=== PATIENT | male | born 1970 | race Caucasian/White ===

== ENCOUNTER → 2023-01-23 | Outpatient (CLI) | payer MEDICARE, OTHER ==
--- NOTE | 2023-01-23 15:28 | CT ---
EXAMINATION TYPE: CT urogram wo/w con DATE OF EXAM: 01/23/2023 COMPARISON: None INDICATION: gross hematuria DLP: 88534.4 mGycm, Automated exposure control for dose reduction was used. CONTRAST: 100 mL of Isovue 370. Study performed TECHNIQUE: Axial images were obtained from above the diaphragm to the pubic rami in the axial plane a t 5 mm thick sections. Reconstructed images are reviewed on the computer in the coronal plane. FINDINGS: Limited CT sections are obtained the lung bases. There is some mild infiltrate or atelectasis along the anterior lung bases right middle lobe and lingula. This is nonspecific. Other etiologies could be considered. CT ABDOMEN: Liver: Normal Spleen: Normal Pancreas: Normal Adrenal glands: The adrenal glands are normal. Gallbladder: Normal Kidneys: No masses are evident. No hydronephrosis is present. No cysts are present. No renal stone s are evident. Following contrast administration no suspicious enhancement is evident delayed images were obtained t hrough the kidneys and renal collecting system. Ureters follow a normal caliber course and contour to the urinary bladder. Urinary bladder as visualized appears unremarkable. No hydroureter or hydroneph rosis is evident. No extrinsic defects or filling defects are evident. Grass 3-D reconstructed images performed on a separate computer by the technologist are presented for review. Renal calyces infundi bula and renal pelves as visualized appear within normal limits. There is faint visualization of the renal calyces and infundibula. Ureters and sequential images appear normal rate Aorta: Normal Inferior vena cava: Normal. CT PELVIS: Loops of bowel within the abdomen and pelvis are normal. This study is without oral contrast limi ting bowel evaluation. Appendix: Identified. No dilated tubular structure or inflammatory change is evident. Urinary bladder: Normal. Genitourinary structures: Prostate appears normal. Osseous structures: No suspicious lytic or sclerotic lesions. IMPRESSIONS: 1. No suspicious hydronephrosis or hydroureter. No persistent filling defects identified.
== END | disposition home or self-care (01) ==
LOC: RADCTMAIN 08:51
PROVIDERS: ATTEND Urology
DX: R31.0 Gross hematuria (principal)
CPT/HCPCS: 74178; 74400; Q9967

== ENCOUNTER → 2023-02-20 | Outpatient (CLI) | payer MEDICARE, OTHER ==
[2023-02-20 20:49] LABS: Appearance,Urine Clear (Clear); Bilirubin,Urine Negative (Negative); Blood,Urine Small (Negative); Color,Urine Yellow (Yellow); Ketones,Urine Negative (Negative); Nitrite,Urine Negative (Negative); PH, Urine 7.5 (5.0-8.0); Specific Gravity,Urine 1.014 (1.001-1.030)
[2023-02-20 20:56] LABS: Bacteria,Urine None Seen /HPF (None Seen)
[2023-02-20 21:52] LABS: Basophils # (A) 0.03 X 10*3/uL (0.00-0.10); Basophils % (A) 0.3 %; Eosinophils # (A) 0.05 X 10*3/uL (0.04-0.35); Eosinophils % (A) 0.5 %; HCT 49.2 % (39.6-50.0); HGB 15.7 g/dL (13.0-17.0); Immature Grans, Automated 0.5 %; Lymphocytes # (A) 2.27 X 10*3/uL (0.90-5.00); Lymphocytes % (A) 20.7 %; MCH 29.2 pg (27.0-32.0); MCHC 31.9 g/dL (32.0-37.0); MCV 91.4 fL (80.0-97.0); Mean Platelet Volume 9.6 fL (9.5-12.2); Monocytes # (A) 0.94 X 10*3/uL (0.20-1.00); Monocytes % (A) 8.6 %; NRBC Per 100 WBC 0 /100 WBCS (0.0-0.0); Neutrophils % (A) 69.4 %; Platelet Count 274 X 10*3/uL (140-440); RBC 5.38 X 10*6/uL (4.40-5.60); RDW 13.5 % (11.5-14.5); WBC 10.95 X 10*3/uL (4.50-10.00)
[2023-02-21 00:11] LABS: African American GFR (CKD) 114.6 (60.0-200.0); Anion Gap 12.1 mmol/L (10.00-18.00); BUN/Creat Ratio 15.2 Ratio (12.00-20.00); Blood Urea Nitrogen 13.1 mg/dL (9.0-27.0); Calcium 9.4 mg/dL (8.7-10.3); Carbon Dioxide 26.2 mmol/L (20.0-27.5); Non-African American GFR(CKD) 98.9 (60.0-200.0); Potassium 4.8 mmol/L (3.5-5.5)
== END | disposition home or self-care (01) ==
LOC: LABPAT 13:06
PROVIDERS: ATTEND Urology
DX: Z01.812 Encounter for preprocedural laboratory examination (principal); R31.0 Gross hematuria
CPT/HCPCS: 36415; 80048; 81001; 85025; 87086

== ENCOUNTER 2023-02-27 12:52 | Inpatient (IN) | payer MEDICARE, OTHER ==
[2023-02-27] MEDS ORDERED: IPRATROPIUM-ALBUTEROL 3 ML NEB INHALATION STA (13:12)
[2023-02-27] MEDS ORDERED: methylPREDNISolone SOD SUCCI 125 MG/2 ML VIAL IV STA (13:12)
--- NOTE | 2023-02-27 13:19 | ED ---
General Adult HPI - General Chief complaint: Shortness of Breath Stated complaint: SOB Time Seen by Provider: 02/27/23 13:00 Source: patient, family (Family at bedside states that patient was not short of breath prior to coming to the hospital for his cystogram), RN notes reviewed, old records reviewed Mode of arrival: wheelchair Limitations: no limitations - History of Present Illness Initial comments: 52-year-old morbidly obese male presents to the emergency room sent from the operating room where he was scheduled for cystogram for increasing shortness of breath. Patient denies any chest pain. No nausea or vomiting. No abdominal pain. Patient admits to smoking a pack a day with a history of hypertension, asthma with home oxygen at 2 liters, and atrial fibrillation. -: week(s) (1) Severity scale (1-10): 0 Associated Symptoms: shortness of breath - Related Data Home Medications Medication Instructions Recorded Confirmed Albuterol Inhaler [Ventolin Hfa 1 - 2 puff INHALATION RT-Q6H PRN 02/22/23 02/27/23 Inhaler] Citalopram Hydrobromide 30 mg PO DAILY 02/22/23 02/27/23 [Citalopram HBr] Clopidogrel [Plavix] 75 mg PO DIRECTED 02/22/23 02/27/23 Loratadine [Claritin] 10 mg PO DAILY 02/22/23 02/27/23 Lurasidone [Latuda] 80 mg PO DAILY 02/22/23 02/27/23 Rivaroxaban [Xarelto] 20 mg PO DIRECTED 02/22/23 02/27/23 Rosuvastatin Calcium 5 mg PO DAILY 02/22/23 02/27/23 atenoloL [Tenormin] 50 mg PO DAILY 02/22/23 02/27/23 dilTIAZem HCL [Cartia Xt] 180 mg PO DAILY 02/22/23 02/27/23 Fluticasone/Umeclidin/Vilanter 1 puff INHALATION RT-DAILY 02/27/23 02/27/23 [Trelegy Ellipta 200-62.5-25] Allergies Allergy/AdvReac Type Severity Reaction Status Date / Time aspirin Allergy Swelling Verified 02/27/23 13:17 [facility] [From [facility]] Allergy Rash/Hives Verified 02/27/23 13:17 Iodinated Contrast Media Allergy Chest Pain Verified 02/27/23 13:17 Review of Systems ROS Statement: Those systems with pertinent positive or pertinent negative responses have been documented in the HPI. ROS Other: All systems not noted in ROS Statement are negative. Past Medical History Past Medical History: Atrial Fibrillation, Asthma, Hypertension History of Any Multi-Drug Resistant Organisms: None Reported Past Surgical History: No Surgical Hx Reported Additional Past Surgical History / Comment(s): eye Past Psychological History: Anxiety Smoking Status: Current every day smoker General Exam Limitations: no limitations General appearance: alert, in no apparent distress Head exam: Present: atraumatic Eye exam: Absent: scleral icterus, conjunctival injection, periorbital swelling ENT exam: Present: mucous membranes dry Neck exam: Absent: meningismus Respiratory exam: Present: wheezes. Absent: accessory muscle use Cardiovascular Exam: Present: regular rate, irregular rhythm (afib) GI/Abdominal exam: Present: soft. Absent: distended, tenderness, guarding, rebound, rigid Extremities exam: Present: normal capillary refill. Absent: calf tenderness Neurological exam: Present: alert, oriented X3 Psychiatric exam: Present: normal affect, normal mood Skin exam: Present: warm, dry, normal color. Absent: cyanosis, diaphoretic, pallor Course Vital Signs 02/27/23 02/27/23 02/27/23 12:53 13:28 13:30 Temperature 97.8 F Pulse Rate 75 77 Respiratory 20 20 Rate Blood Pressure 112/74 O2 Sat by Pulse 94 L Oximetry 02/27/23 02/27/23 02/27/23 13:48 14:10 14:43 Temperature Pulse Rate 84 75 68 Respiratory 20 Rate Blood Pressure 126/75 O2 Sat by Pulse 95 Oximetry 02/27/23 14:55 Temperature Pulse Rate 75 Respiratory Rate Blood Pressure O2 Sat by Pulse Oximetry EKG Findings - EKG Comments: EKG Findings:: EKG interpreted by me shows atrial fibrillation with ventricular rate of 77, QRS 0.99, QTC 0.409, normal axis. Medical Decision Making - Medical Decision Making Was pt. sent in by a medical professional or institution (, PA, BEEF BREAKER, urgent care, hospital, or fci...) When possible be specific @ -Yes urology Dr. Fitch from preop Did you speak to anyone other than the patient for history (EMS, parent, family, police, friend...)? What history was obtained from this source @ -family at bedside state shortness of breath worse since arrival to OR Did you review nursing and triage notes (agree or disagree)? Why? @ -I reviewed and agree with nursing and triage notes Were old charts reviewed (outside hosp., previous admission, EMS record, old EKG, old radiological studies, urgent care reports/EKG's, fci records)? Report findings @ -No old charts were reviewed Differential Diagnosis (chest pain, altered mental status, abdominal pain women, abdominal pain men, vaginal bleeding, weakness, fever, dyspnea, syncope, headache, dizziness, GI bleed, back pain, seizure, CVA, palpatations, mental health, musculoskeletal)? @ -Differential Dyspnea: Coronary syndrome, arrhythmia, tamponade, asthma, COPD, pulmonary embolism, p neumonia, pneumothorax, pulmonary effusion, anaphylaxis, diabetic ketoacidosis, flailed chest, pulmonary contusion, diaphragmatic rupture, anemia, neuromuscular, this is not meant to be an all-inclusive list. EKG interpreted by me (3pts min.). @ -yes EKG interpreted by me shows atrial fibrillation with a ventricular rate of 77, QRS of 0.99, QTC 0.409, normal axis. No old EKG to compare. X-rays interpreted by me (1pt min.). @ -Chest x-ray interpreted by me shows no evidence of focal consolidation. Trachea is midline CT interpreted by me (1pt min.). @ -None done U/S interpreted by me (1pt. min.). @ -None done What testing was considered but not performed or refused? (CT, X-rays, U/S, labs)? Why? @ -None What meds were considered but not given or refused? Why? @ -None Did you discuss the management of the patient with other professionals (professionals i.e. ., PA, BEEF BREAKER, lab, RT, psych nurse, social media sr strategy manager, rounding machine operator, teacher, branch officer, case folder)? Give summary @ -No Was smoking cessation discussed for >3mins.? @ -yes Was critical care preformed (if so, how long)? @ -No Were there social determinants of health that impacted care today? How? (Homelessness, low income, unemployed, alcoholism, drug addiction, transportation, low edu. Level, literacy, decrease access to med. care, prison, rehab)? @ -No Was there de-escalation of care discussed even if they declined (Discuss DNR or withdrawal of care, Hospice)? DNR status @ -No What co-morbidities impacted this encounter? (DM, HTN, Smoking, COPD, CAD, Cancer, CVA, ARF, Chemo, Hep., AIDS, mental health diagnosis, sleep apnea, morbid obesity)? @ Morbid obesity, COPD, atrial fibrillation, hypertension Was patient admitted / discharged? Hospital course, mention meds given and route, prescriptions, significant lab abnormalities, going to OR and other pertinent info. @ -Admitted. Patient sent from the operating room during preop for shortness of breath. He was scheduled to have a cystogram with Dr Fitch. Denies any chest pain. States he's had shortness of breath for the past week. Family at bedside states that his shortness of breath worsened since arriving in the hospital. Patient admits to being a pack-a-day smoker. He is on home oxygen 2l. States has a history of atrial fibrillation , has been off Plavix and Xaeralto for four days for this procedure today. On examination patient has inspiratory and expiratory wheezes. He was given a DuoNeb treatment along with Solu-Medrol with improvement of his symptoms. Chest x-ray interpreted by me shows no evidence of focal consolidation. Trachea is midline. D-dimer 0.24. Radiologist impression chest xr generalized hazy appearance which could represent atelectasis. Patient was offered admission initially and declined. After attempting to get dressed for discharge he became increasingly short of breath with exertion therefore changed his mind and now wants to stay in the hospital. Case discussed with Dr. Holt Will reevaluate patient to determine if consults to Dr. Anderson and Dr. Jewell uurology are necessary. Case discussed with Dr. Johnson Undiagnosed new problem with uncertain prognosis? @ -No Drug Therapy requiring intensive monitoring for toxicity (Heparin, Nitro, Insulin, Cardizem)? @ -No Were any procedures done? @ -No Diagnosis/symptom? @ -COPD exacerbation Acute, or Chronic, or Acute on Chronic? @ -Acute on chronic Uncomplicated (without systemic symptoms) or Complicated (systemic symptoms)? @ -Complicated Side effects of treatment? @ -No Exacerbation, Progression, or Severe Exacerbation? @ -Exacerbation Poses a threat to life or bodily function? How? (Chest pain, USA, NC, pneumonia, PE, COPD, DKA, ARF, appy, cholecystitis, CVA, Diverticulitis, Homicidal, Suicidal, threat to staff... and all critical care pts) @ -no - Lab Data Result diagrams: 02/27/23 13:15 02/27/23 13:15 Lab Results 02/27/23 02/27/23 02/27/23 Range/Units 13:15 13:15 13:15 WBC 9.0 (3.8-10.6) k/uL RBC 5.15 (4.30-5.90) m/uL Hgb 15.0 (13.0-17.5) gm/dL Hct 46.1 (39.0-53.0) % MCV 89.6 (80.0-100.0) fL MCH 29.2 (25.0-35.0) pg MCHC 32.6 (31.0-37.0) g/dL RDW 13.2 (11.5-15.5) % Plt Count 260 (150-450) k/uL MPV 7.4 Neutrophils % 72 % Lymphocytes % 18 % Monocytes % 6 % Eosinophils % 3 % Basophils % 0 % Neutrophils # 6.5 (1.3-7.7) k/uL Lymphocytes # 1.6 (1.0-4.8) k/uL Monocytes # 0.5 (0-1.0) k/uL Eosinophils # 0.2 (0-0.7) k/uL Basophils # 0.0 (0-0.2) k/uL PT 10.4 (9.0-12.0) sec INR 1.0 (<1.2) APTT 30.2 H (22.0-30.0) sec D-Dimer 0.24 (<0.60) mg/L FEU Sodium 136 L (137-145) mmol/L Potassium 4.6 (3.5-5.1) mmol/L Chloride 102 (98-107) mmol/L Carbon Dioxide 28 (22-30) mmol/L Anion Gap 6 mmol/L BUN 14 (9-20) mg/dL Creatinine 0.67 (0.66-1.25) mg/dL Est GFR (CKD-EPI)AfAm >90 (>60 ml/min/1.73 sqM) Est GFR (CKD-EPI)NonAf >90 (>60 ml/min/1.73 sqM) Glucose 117 H (74-99) mg/dL Plasma Lactic Acid Joseluis (0.7-2.0) mmol/L Calcium 8.7 (8.4-10.2) mg/dL Magnesium 2.0 (1.6-2.3) mg/dL Total Bilirubin 1.0 (0.2-1.3) mg/dL AST 19 (17-59) U/L ALT 15 (4-49) U/L Alkaline Phosphatase 74 (38-126) U/L Troponin I (0.000-0.034) ng/mL NT-Pro-B Natriuret Pep pg/mL Total Protein 6.5 (6.3-8.2) g/dL Albumin 3.8 (3.5-5.0) g/dL 02/27/23 02/27/23 02/27/23 Range/Units 13:15 13:15 13:15 WBC (3.8-10.6) k/uL RBC (4.30-5.90) m/uL Hgb (13.0-17.5) gm/dL Hct (39.0-53.0) % MCV (80.0-100.0) fL MCH (25.0-35.0) pg MCHC (31.0-37.0) g/dL RDW (11.5-15.5) % Plt Count (150-450) k/uL MPV Neutrophils % % Lymphocytes % % Monocytes % % Eosinophils % % Basophils % % Neutrophils # (1.3-7.7) k/uL Lymphocytes # (1.0-4.8) k/uL Monocytes # (0-1.0) k/uL Eosinophils # (0-0.7) k/uL Basophils # (0-0.2) k/uL PT (9.0-12.0) sec INR (<1.2) APTT (22.0-30.0) sec D-Dimer (<0.60) mg/L FEU Sodium (137-145) mmol/L Potassium (3.5-5.1) mmol/L Chloride (98-107) mmol/L Carbon Dioxide (22-30) mmol/L Anion Gap mmol/L BUN (9-20) mg/dL Creatinine (0.66-1.25) mg/dL Est GFR (CKD-EPI)AfAm (>60 ml/min/1.73 sqM) Est GFR (CKD-EPI)NonAf (>60 ml/min/1.73 sqM) Glucose (74-99) mg/dL Plasma Lactic Acid Joseluis 0.9 (0.7-2.0) mmol/L Calcium (8.4-10.2) mg/dL Magnesium (1.6-2.3) mg/dL Total Bilirubin (0.2-1.3) mg/dL AST (17-59) U/L ALT (4-49) U/L Alkaline Phosphatase (38-126) U/L Troponin I <0.012 (0.000-0.034) ng/mL NT-Pro-B Natriuret Pep 275 pg/mL Total Protein (6.3-8.2) g/dL Albumin (3.5-5.0) g/dL Disposition Clinical Impression: COPD exacerbation Disposition: ADMITTED IP TO THIS HOSP Is patient prescribed a controlled substance at d/c from ED?: No Decision Date: 02/27/23 Decision Time: 15:21
[2023-02-27 13:27] LABS: Basophils % (A) 0 %; Eosinophils # (A) 0.2 k/uL (0-0.7); Eosinophils % (A) 3 %; HCT 46.1 % (39.0-53.0); Lymphocytes # (A) 1.6 k/uL (1.0-4.8); Lymphocytes % (A) 18 %; MCH 29.2 pg (25.0-35.0); MCHC 32.6 g/dL (31.0-37.0); MCV 89.6 fL (80.0-100.0); Mean Platelet Volume 7.4; Monocytes # (A) 0.5 k/uL (0-1.0); Monocytes % (A) 6 %; Neutrophils # (A) 6.5 k/uL (1.3-7.7); Neutrophils % (A) 72 %; Platelet Count 260 k/uL (150-450); RBC 5.15 m/uL (4.30-5.90); RDW 13.2 % (11.5-15.5)
[2023-02-27 13:40] LABS: ALT 15 U/L (4-49); African American GFR (CKD) >90 (>60 ml/min/1.73 sqM); Albumin 3.8 g/dL (3.5-5.0); Anion Gap 6 mmol/L; Blood Urea Nitrogen 14 mg/dL (9-20); Calcium 8.7 mg/dL (8.4-10.2); Carbon Dioxide 28 mmol/L (22-30); Chloride 102 mmol/L (98-107); Glucose 117 mg/dL (74-99); Non-African American GFR(CKD) >90 (>60 ml/min/1.73 sqM); Sodium 136 mmol/L (137-145); Total Protein 6.5 g/dL (6.3-8.2)
[2023-02-27 13:42] LABS: AST 19 U/L (17-59); Alkaline Phosphatase 74 U/L (38-126); Potassium 4.6 mmol/L (3.5-5.1)
[2023-02-27 13:44] LABS: Partial Thromboplastin Time 30.2 sec (22.0-30.0); Prothrombin Time 10.4 sec (9.0-12.0)
--- NOTE | 2023-02-27 14:20 | XR ---
EXAMINATION TYPE: XR chest 2V DATE OF EXAM: 02/27/2023 1:50 PM COMPARISON: Chest radiographs from 06/14/2022 TECHNIQUE: XR chest 2V Frontal and lateral views of the chest. CLINICAL INDICATION:Male, 52 years old with history of difficulty breathing; FINDINGS: Lungs/Pleura: Low lung volumes are present. There is no evidence of pleural effusion, focal consolida tion, or pneumothorax. Pulmonary vascularity: Unremarkable. Heart/mediastinum: Cardiomediastinal silhouette is unremarkable. Musculoskeletal: No acute osseous pathology. IMPRESSION: Low lung volumes with a generalized hazy appearance which could represent atelectasis.
[2023-02-27] MEDS ORDERED: ALBUTEROL NEBULIZED 2.5 MG/3 ML INHALATION STA (14:21)
[2023-02-27] MEDS ORDERED: NALOXONE 0.4 MG/ML 1 ML VIAL IV PRN (15:41)
[2023-02-27] MEDS ORDERED: ALBUTEROL HFA INHALER INHALATION PRN (15:44)
[2023-02-27] MEDS ORDERED: IPRATROPIUM 0.5 MG/2.5 ML NEBU INHALATION SCH (16:00)
[2023-02-27] MEDS ORDERED: IPRATROPIUM-ALBUTEROL 3 ML NEB INHALATION PRN (17:49)
--- NOTE | 2023-02-27 17:57 | P.HPIM ---
History of Present Illness H&P Date: 02/27/23 Patient is a 52-year-old male with PMH of COPD on 2 L home O2, atrial fibrillation, hypertension that presents the ED after being brought from the OR where he was scheduled for a cystogram with urology. He reports shortness of breath that is progressively getting worse over the past 2 weeks. His breathing is much more worse today. He reports wheezing. He denies any cough. He denies any chest pain. He denies any headache, lower extremity edema, nausea or vomiting, fever or chills, palpitations, changes in urination or bowel habits. No changes in appetite or weight. He denies any dizziness, numbness/weakness as tingling of extremities. In the ED, he required 3 L nasal cannula to maintain O2 saturation greater than 92%. Vital signs were otherwise stable. CBC was unremarkable. D-dimer was 0.4. Coagulation panel showed a PTT of 30.2. CMP showed sodium 136, glucose of 117. Lactic acid negative. Troponin less than 0.012. BNP 275. Chest x-ray showed atelectasis. EKG showed atrial fibrillation with low voltage QRS, ventricular rate of 77. Patient is admitted for COPD exacerbation. Pertinent positives and negatives as discussed in HPI, a complete review of systems was performed and all other systems are negative. General: non toxic, moderate distress, appears at stated age, morbidly obese Derm: warm, dry Head: atraumatic, normocephalic, symmetric Eyes: EOMI, no lid lag, anicteric sclera Mouth: no lip lesion, mucus membranes moist Cardiovascular: Irregularly irregular, no murmur Lungs: Diffuse wheezing bilateral, no rhonchi, no rales , no accessory muscle use Ext: no gross muscle atrophy, no edema, no contractures Neuro: no focal neuro deficits Psych: Alert, oriented, appropriate affect Patient has dyspnea speaking in 2-3 word sentences. Acute on chronic hypoxic respiratory failure Acute on chronic COPD exacerbation Chronic conditions: Atrial fibrillation, hypertension Based on my assessment of this patient, this patient meets a high complexity level of care. Patient has a COPD with severe exacerbation or progression of disease which poses a threat to life or bodily function. He is at baseline 2 L of oxygen at home. He is currently requiring 3 L to maintain O2 saturation greater than 92%. D-dimer negative, low concerns for PE. Chest x-ray showing atelectasis. Telemetry monitoring will be ordered. Pulmonology will be consulted for further management of this patient Bronchodilators: DuoNeb 0.5mg-3mg/3ml scheduled and as needed for SOB and wheezing. Symbicort 2 puff BID. Antibiotics: Doxycycline 100 mg PO BID. Steroids: SoluMedrol 60 mg IV Q6H. Supplemental oxygen to maintain O2 > 92%. DVT Prophylaxis: Xarelto 20 mg PO QD. FULL CODE. I have reviewed the following distributed energy systems consultant notes: I have reviewed the results of the following tests: CBC was unremarkable. D-dimer was 0.4. Coagulation panel showed a PTT of 30.2. CMP showed sodium 136, glucose of 117. Lactic acid negative. Troponin less than 0.012. I have ordered the following tests: I have discussed the care of this patient with the following independent historian: I have independently interpreted the following test below: Chest x-ray showed atelectasis. EKG showed atrial fibrillation with low voltage QRS, ventricular rate of 77. I have discussed the management of this patient with the following physician: The case was discussed with the ED physician and decision made to admit the patient for COPD exacerbation and acute on chronic hypoxic respiratory failure. Past Medical History Past Medical History: Atrial Fibrillation, Asthma, COPD, Hypertension History of Any Multi-Drug Resistant Organisms: None Reported Past Surgical History: No Surgical Hx Reported Additional Past Surgical History / Comment(s): eye Past Anesthesia/Blood Transfusion Reactions: No Reported Reaction Past Psychological History: Anxiety Smoking Status: Current every day smoker Past Alcohol Use History: None Reported Past Drug Use History: None Reported Medications and Allergies Home Medications Medication Instructions Recorded Confirmed Type Albuterol Inhaler [Ventolin Hfa 1 - 2 puff INHALATION RT-Q6H PRN 02/22/23 02/27/23 History Inhaler] Citalopram Hydrobromide 30 mg PO DAILY 02/22/23 02/27/23 History [Citalopram HBr] Clopidogrel [Plavix] 75 mg PO DIRECTED 02/22/23 02/27/23 History Loratadine [Claritin] 10 mg PO DAILY 02/22/23 02/27/23 History Lurasidone [Latuda] 80 mg PO DAILY 02/22/23 02/27/23 History Rivaroxaban [Xarelto] 20 mg PO DIRECTED 02/22/23 02/27/23 History Rosuvastatin Calcium 5 mg PO DAILY 02/22/23 02/27/23 History atenoloL [Tenormin] 50 mg PO DAILY 02/22/23 02/27/23 History dilTIAZem HCL [Cartia Xt] 180 mg PO DAILY 02/22/23 02/27/23 History Fluticasone/Umeclidin/Vilanter 1 puff INHALATION RT-DAILY 02/27/23 02/27/23 History [Trelegy Ellipta 200-62.5-25] Allergies Allergy/AdvReac Type Severity Reaction Status Date / Time aspirin Allergy Swelling Verified 02/27/23 13:17 [facility] Allergy Rash/Hives Verified 02/27/23 13:17 Iodinated Contrast Media Allergy Chest Pain Verified 02/27/23 13:17 Physical Exam Vitals: Vital Signs Temp Pulse Resp BP Pulse Ox 02/27/23 14:55 75 02/27/23 14:43 68 02/27/23 14:10 75 20 126/75 95 02/27/23 13:48 84 02/27/23 13:30 20 02/27/23 13:28 77 02/27/23 12:53 97.8 F 75 20 112/74 94 L Intake and Output 02/27/23 02/27/23 02/27/23 06:59 14:59 22:59 Other: Weight 167.829 kg Results CBC & Chem 7: 02/27/23 13:15 02/27/23 13:15 Labs: Abnormal Lab Results - Last 24 Hours (Table) 02/27/23 02/27/23 Range/Units 13:15 13:15 APTT 30.2 H (22.0-30.0) sec Sodium 136 L (137-145) mmol/L Glucose 117 H (74-99) mg/dL Thrombosis Risk Factor Assmnt - Choose All That Apply Any of the Below Risk Factors Present?: Yes Each Factor Represents 1 point: Age 41-60 years, Obesity (BMI >25) Other Risk Factors: No Other congenital or acquired thrombophilia - If yes, enter type in comment: No Thrombosis Risk Factor Assessment Total Risk Factor Score: 2 Thrombosis Risk Factor Assessment Level: Low Risk
[2023-02-27] MEDS: methylPREDNISolone SOD SUCCI 125 MG/2 ML VIAL IV SCH ×2 (18:31→23:34)
[2023-02-27] MEDS: IPRATROPIUM-ALBUTEROL 3 ML NEB INHALATION SCH (20:29)
[2023-02-27] MEDS: DOXYCYCLINE 100 MG CAP PO SCH (21:37)
[2023-02-28] MEDS: IPRATROPIUM-ALBUTEROL 3 ML NEB INHALATION SCH ×7 (00:01→23:40)
[2023-02-28] MEDS: methylPREDNISolone SOD SUCCI 125 MG/2 ML VIAL IV SCH ×3 (05:20→18:35)
[2023-02-28] MEDS: CITALOPRAM HYDROBROMIDE 10 MG TAB PO SCH (06:58)
[2023-02-28] MEDS: LORATADINE 10 MG TAB PO SCH (06:58)
[2023-02-28] MEDS: DOXYCYCLINE 100 MG CAP PO SCH ×2 (06:58→18:35)
[2023-02-28] MEDS: RIVAROXABAN 20 MG TAB PO SCH (06:58)
[2023-02-28] MEDS: atenoloL 50 MG TAB PO SCH (06:59)
[2023-02-28] MEDS: ATORVASTATIN 10 MG TAB PO SCH (06:59)
[2023-02-28] MEDS: DILTIAZEM CD 180 MG CAP.ER.24H PO SCH (07:15)
[2023-02-28] MEDS ORDERED: SYMBICORT 80-4.5 MCG INHALER INHALATION SCH (08:00)
--- NOTE | 2023-02-28 11:00 | P.CNPUL ---
History of Present Illness Consult date: 02/28/23 Requesting physician: Harlan Nix Reason for consult: dyspnea Chief complaint: Shortness of breath, hematuria History of present illness: This is a very pleasant 52-year-old male patient who has a history of morbid obesity, chronic atrial fibrillation anticoagulated with Xarelto, urinary retention, obstructive sleep apnea with an AHI of 100 and is maintained on BiPAP in the outpatient setting at 19/14 cm of water, chronic restrictive pulmonary disease with an FEV1 value of 53% of predicted, oxygen dependent on home oxygen at 2 L/m per nasal cannula, former smoker. He had recently been having issues with gross hematuria was following with urology. They attempted a cystoscopy in the office that the patient did not tolerate secondary to pain. He was scheduled for cystoscopy and bilateral retrograde pyelograms here in the OR yesterday but in preop he was felt to be too short of breath and sent to the emergency room. He was subsequently admitted for COPD exacerbation. He is seen today in consultation on the regular medical floor. He is currently sitting up in a chair at the bedside. Awake and alert in no acute distress. He denies feeling any more short of breath than his usual. He is dyspneic with exertion. His x-ray reveals low lung volumes with generalized haziness and possible atelectasis. No acute process. He's been initiated and DuoNeb inhalations, Pulmicort and Perforomist inhalations, IV Solu-Medrol. Continued on his Xarelto. Empiric antibiotics in the form of doxycycline. White count 9.0. Hemoglobin 15.0. Platelets 260. D-dimer 0.24. Sodium 136. Potassium 4.6. Bicarb 20. BUN 14. Creatinine 0.67. Glucose 117. AST 19. ALT 15. Troponin negative times one. ProBNP 275. Review of Systems REVIEW OF SYSTEMS: CONSTITUTIONAL: Denies any recent significant weight loss or weight gain. EYES: Denies change in vision. EARS, NOSE, MOUTH, THROAT: Denies headaches, denies sore throat. CARDIOVASCULAR: Denies chest pain, palpitations or syncopal episodes. RESPIRATORY: Positive for shortness of breath, no cough, congestion or hemoptysis. GASTROINTESTINAL: Denies change in appetite, denies abdominal pain GENITOURINARY: Positive for hematuria, denies infections. MUSKULOSKELETAL: Denies pain, denies swelling. INTEGUMENTARY: Denies rash, denies eczema. NEUROLOGICAL: Denies recent memory loss, no recent seizure activity. PSYCHIATRIC: Denies anxiety, denies depression. HEMATOLOGIC/LYMPHATIC: Denies anemia, denies enlarged lymph nodes. Past Medical History Past Medical History: Atrial Fibrillation, Asthma, COPD, Hypertension History of Any Multi-Drug Resistant Organisms: None Reported Past Surgical History: No Surgical Hx Reported Additional Past Surgical History / Comment(s): eye Past Anesthesia/Blood Transfusion Reactions: No Reported Reaction Past Psychological History: Anxiety Smoking Status: Current every day smoker Past Alcohol Use History: None Reported Past Drug Use History: None Reported Medications and Allergies Home Medications Medication Instructions Recorded Confirmed Type Albuterol Inhaler [Ventolin Hfa 1 - 2 puff INHALATION RT-Q6H PRN 02/22/23 02/27/23 History Inhaler] Citalopram Hydrobromide 30 mg PO DAILY 02/22/23 02/27/23 History [Citalopram HBr] Clopidogrel [Plavix] 75 mg PO DIRECTED 02/22/23 02/27/23 History Loratadine [Claritin] 10 mg PO DAILY 02/22/23 02/27/23 History Lurasidone [Latuda] 80 mg PO DAILY 02/22/23 02/27/23 History Rivaroxaban [Xarelto] 20 mg PO DIRECTED 02/22/23 02/27/23 History Rosuvastatin Calcium 5 mg PO DAILY 02/22/23 02/27/23 History atenoloL [Tenormin] 50 mg PO DAILY 02/22/23 02/27/23 History dilTIAZem HCL [Cartia Xt] 180 mg PO DAILY 02/22/23 02/27/23 History Fluticasone/Umeclidin/Vilanter 1 puff INHALATION RT-DAILY 02/27/23 02/27/23 History [Trelegy Ellipta 200-62.5-25] Allergies Allergy/AdvReac Type Severity Reaction Status Date / Time aspirin Allergy Swelling Verified 02/27/23 13:17 cefaclor [From Ceclor] Allergy Rash/Hives Verified 02/27/23 13:17 Iodinated Contrast Media Allergy Chest Pain Verified 02/27/23 13:17 Physical Exam Vitals: Vital Signs Temp Pulse Pulse Resp BP BP Pulse Ox 02/28/23 09:07 86 02/28/23 08:51 84 91 L 02/28/23 07:28 97.7 F 87 20 144/85 91 L 02/28/23 05:09 90 02/28/23 04:57 88 02/28/23 02:37 97.5 F L 99 18 136/83 92 L 02/28/23 00:10 88 02/28/23 00:04 84 02/27/23 23:32 98.5 F 99 20 107/70 93 L 02/27/23 21:37 88 20 128/57 94 L 02/27/23 20:39 90 02/27/23 20:29 91 02/27/23 20:00 20 02/27/23 17:58 72 20 122/80 96 02/27/23 14:55 75 02/27/23 14:43 68 02/27/23 14:10 75 20 126/75 95 02/27/23 13:48 84 02/27/23 13:30 20 02/27/23 13:28 77 02/27/23 12:53 97.8 F 75 20 112/74 94 L Intake and Output 02/27/23 02/28/23 02/28/23 22:59 06:59 14:59 Intake Total 600 Balance 600 Intake: Oral 600 Other: Voiding Method Toilet Toilet Weight 167.829 kg GENERAL EXAM: Alert, pleasant, obese 52-year-old male up in a chair, on 2 L nasal cannula, comfortable in no apparent distress. HEAD: Normocephalic. EYES: Normal reaction of pupils, equal size. NOSE: Clear with pink turbinates. THROAT: No erythema or exudates. NECK: No masses, no JVD. CHEST: No chest wall deformity. LUNGS: Equal air entry with no crackles, wheeze, rhonchi or dullness. Diminished. CVS: S1 and S2 normal with no audible murmur, regular rhythm. ABDOMEN: No hepatosplenomegaly, normal bowel sounds, no guarding or rigidity. SPINE: No scoliosis or deformity SKIN: No rashes CENTRAL NERVOUS SYSTEM: No focal deficits, tone is normal in all 4 extremities. EXTREMITIES: There is no peripheral edema. No clubbing, no cyanosis. Peripheral pulses are intact. Results - Laboratory Findings CBC and BMP: 02/27/23 13:15 02/27/23 13:15 PT/INR, D-dimer PT 10.4 sec (9.0-12.0) 02/27/23 13:15 INR 1.0 (<1.2) 02/27/23 13:15 D-Dimer 0.24 mg/L FEU (<0.60) 02/27/23 13:15 Abnormal lab findings: Abnormal Labs 02/27/23 02/27/23 13:15 13:15 APTT 30.2 H Sodium 136 L Glucose 117 H - Diagnostic Findings Chest x-ray: image reviewed Assessment and Plan Assessment: Acute exacerbation of severe oxygen dependent chronic obstructive pulmonary disease Chronic hypoxemic respiratory failure secondary to above Former smoker Hematuria, intolerant to cystoscopy in the outpatient setting and was planning for cystoscopy with bilateral grade pyelogram Severe obstructive sleep apnea with an AHI of 100. Maintained on BiPAP 19/14 cm water Morbid obesity with a BMI of 58 kg/m Chronic atrial fibrillation, adequately regulated with Xarelto Hypertension Hyperlipidemia Plan: The patient was seen and evaluated Chest x-ray, labs and medications reviewed Initiated on DuoNeb inhalations, Pulmicort and Perforomist inhalations, Solu Medrol Empiric antibiotics in form of doxycycline We will continue to follow and make further recommendations based on his clinical status I have personally seen and examined the patient, performed the documentation and the assessment and plan as written. Number of minutes spent on the visit: 20.
[2023-02-28] MEDS: LURASIDONE 80 MG TAB PO SCH (13:01)
--- NOTE | 2023-02-28 17:03 | P.PN ---
Subjective Progress Note Date: 02/28/23 Patient is a 52-year-old male with PMH of COPD on 2 L home O2, atrial fibrillation, hypertension that presents the ED after being brought from the OR where he was scheduled for a cystogram with urology. He reports shortness of breath that is progressively getting worse over the past 2 weeks. His breathing is much more worse today. He reports wheezing. He denies any cough. He denies any chest pain. He denies any headache, lower extremity edema, nausea or vomiting, fever or chills, palpitations, changes in urination or bowel habits. No changes in appetite or weight. He denies any dizziness, numbness/weakness as tingling of extremities. In the ED, he required 3 L nasal cannula to maintain O2 saturation greater than 92%. Vital signs were otherwise stable. CBC was unremarkable. D-dimer was 0.4. Coagulation panel showed a PTT of 30.2. CMP showed sodium 136, glucose of 117. Lactic acid negative. Troponin less than 0.012. BNP 275. Chest x-ray showed atelectasis. EKG showed atrial fibrillation with low voltage QRS, ventricular rate of 77. Patient is admitted for COPD exacerbation. 02/28 Patient was seen and examined. Sleeping comfortably. Still requires 3L NC to maintain O2 saturation > 92%. General: non toxic, moderate distress, appears at stated age, morbidly obese Derm: warm, dry Head: atraumatic, normocephalic, symmetric Eyes: EOMI, no lid lag, anicteric sclera Mouth: no lip lesion, mucus membranes moist Cardiovascular: Irregularly irregular, no murmur Lungs: Decreased BS bilateral, no rhonchi, no rales , no accessory muscle use Ext: no gross muscle atrophy, no edema, no contractures Neuro: no focal neuro deficits Psych: Alert, oriented, appropriate affect Patient has dyspnea speaking in 2-3 word sentences. Acute on chronic hypoxic respiratory failure Acute on chronic COPD exacerbation Chronic conditions: Atrial fibrillation, hypertension Based on my assessment of this patient, this patient meets a high complexity level of care. Patient has a COPD with severe exacerbation or progression of disease which poses a threat to life or bodily function. He is at baseline 2 L of oxygen at home. He is currently requiring 3 L to maintain O2 saturation greater than 92%. D-dimer negative, low concerns for PE. Chest x-ray showing atelectasis. Telemetry monitoring will be ordered. Pulmonology on board. Bronchodilators: DuoNeb 0.5mg-3mg/3ml scheduled and as needed for SOB and wheezing. Symbicort 2 puff BID. Antibiotics: Doxycycline 100 mg PO BID. Steroids: SoluMedrol 60 mg IV Q6H. Supplemental oxygen to maintain O2 > 92%. DVT Prophylaxis: Xarelto 20 mg PO QD. FULL CODE. I have reviewed the following [employer] consultant notes: Pulmonology note reviewed from 02/28. I have reviewed the results of the following tests: I have ordered the following tests: I have discussed the care of this patient with the following independent historian: I have independently interpreted the following test below: I have discussed the management of this patient with the following physician: Patient is pending clinical improvement. Pulmonology on board. Needs nebulizer. Anticipate DC in 1-2 days. Objective - Vital Signs Vital signs: Vital Signs Temp 98.0 F 02/28/23 12:42 Pulse 80 02/28/23 16:19 Resp 18 02/28/23 12:42 BP 117/75 02/28/23 12:42 Pulse Ox 92 L 02/28/23 12:42 FiO2 Intake & Output 02/27/23 02/28/23 02/28/23 18:59 06:59 18:59 Intake Total 600 Balance 600 Weight 167.829 kg Intake: Oral 600 Other: Voiding Method Toilet Toilet - Labs CBC & Chem 7: 02/27/23 13:15 02/27/23 13:15
[2023-02-28] MEDS: FORMOTEROL FUMARATE 20 MCG/2 ML NEBU INHALATION SCH (20:28)
[2023-02-28] MEDS: BUDESONIDE 1 MG/2 ML NEBU INHALATION SCH (20:28)
[2023-03-01] MEDS: methylPREDNISolone SOD SUCCI 125 MG/2 ML VIAL IV SCH ×4 (00:04→18:17)
[2023-03-01] MEDS: IPRATROPIUM-ALBUTEROL 3 ML NEB INHALATION SCH ×5 (03:55→20:41)
[2023-03-01] MEDS: LORATADINE 10 MG TAB PO SCH (07:14)
[2023-03-01] MEDS: CITALOPRAM HYDROBROMIDE 10 MG TAB PO SCH (07:14)
[2023-03-01] MEDS: atenoloL 50 MG TAB PO SCH (07:14)
[2023-03-01] MEDS: ATORVASTATIN 10 MG TAB PO SCH (07:16)
[2023-03-01] MEDS: LURASIDONE 80 MG TAB PO SCH (07:16)
[2023-03-01] MEDS: RIVAROXABAN 20 MG TAB PO SCH (07:16)
[2023-03-01] MEDS: DILTIAZEM CD 180 MG CAP.ER.24H PO SCH (07:16)
[2023-03-01] MEDS: DOXYCYCLINE 100 MG CAP PO SCH ×2 (07:16→20:46)
[2023-03-01] MEDS: BUDESONIDE 1 MG/2 ML NEBU INHALATION SCH ×2 (07:56→20:41)
[2023-03-01] MEDS: FORMOTEROL FUMARATE 20 MCG/2 ML NEBU INHALATION SCH ×2 (07:56→20:41)
--- NOTE | 2023-03-01 11:02 | P.PN ---
Subjective Progress Note Date: 03/01/23 This is a very pleasant 52-year-old male patient who has a history of morbid obesity, chronic atrial fibrillation anticoagulated with Xarelto, urinary retention, obstructive sleep apnea with an AHI of 100 and is maintained on BiPAP in the outpatient setting at 19/14 cm of water, chronic restrictive pulmonary disease with an FEV1 value of 53% of predicted, oxygen dependent on home oxygen at 2 L/m per nasal cannula, former smoker. He had recently been having issues with gross hematuria was following with urology. They attempted a cystoscopy in the office that the patient did not tolerate secondary to pain. He was scheduled for cystoscopy and bilateral retrograde pyelograms here in the OR yesterday but in preop he was felt to be too short of breath and sent to the emergency room. He was subsequently admitted for COPD exacerbation. He is seen today in consultation on the regular medical floor. He is currently sitting up in a chair at the bedside. Awake and alert in no acute distress. He denies feeling any more short of breath than his usual. He is dyspneic with exertion. His x-ray reveals low lung volumes with generalized haziness and possible atelectasis. No acute process. He's been initiated and DuoNeb inhalations, Pulmicort and Perforomist inhalations, IV Solu-Medrol. Continued on his Xarelto. Empiric antibiotics in the form of doxycycline. White count 9.0. Hemoglobin 15.0. Platelets 260. D-dimer 0.24. Sodium 136. Potassium 4.6. Bicarb 20. BUN 14. Creatinine 0.67. Glucose 117. AST 19. ALT 15. Troponin negative times one. ProBNP 275. The patient is seen today 03/01/2023 in follow-up on the regular medical floor. He is currently resting comfortably in bed. Awake and alert in no acute distress. Maintaining O2 saturations in the 90s on 2 L/m per nasal cannula. No IV fluids. Breathing a bit easier today compared to yesterday. Not quite back to his baseline. He is continued on DuoNeb inhalations, Pulmicort and Perforomist inhalations, IV Solu-Medrol. Empiric antibiotics in the form of doxycycline. Anticoagulated with Xarelto. Objective - Vital Signs Vital signs: Vital Signs Temp 97.6 F 03/01/23 09:05 Pulse 95 03/01/23 09:05 Resp 17 03/01/23 09:05 BP 112/58 03/01/23 09:05 Pulse Ox 96 03/01/23 09:05 FiO2 Intake & Output 02/28/23 03/01/23 03/01/23 18:59 06:59 18:59 Intake Total 500 800 Balance 500 800 Intake: Oral 500 800 Other: Voiding Method Toilet Toilet Toilet - Exam GENERAL EXAM: Alert, obese 52-year-old male, resting in bed, on 2 L nasal cannula, comfortable in no apparent distress. HEAD: Normocephalic. EYES: Normal reaction of pupils, equal size. NOSE: Clear with pink turbinates. THROAT: No erythema or exudates. NECK: No masses, no JVD. CHEST: No chest wall deformity. LUNGS: Equal air entry with no crackles, wheeze, rhonchi or dullness. Diminished. CVS: S1 and S2 normal with no audible murmur, regular rhythm. ABDOMEN: No hepatosplenomegaly, normal bowel sounds, no guarding or rigidity. SPINE: No scoliosis or deformity SKIN: No rashes CENTRAL NERVOUS SYSTEM: No focal deficits, tone is normal in all 4 extremities. EXTREMITIES: There is no peripheral edema. No clubbing, no cyanosis. Peripheral pulses are intact. - Labs CBC & Chem 7: 02/27/23 13:15 02/27/23 13:15 Assessment and Plan Assessment: Acute exacerbation of severe oxygen dependent chronic obstructive pulmonary disease Chronic hypoxemic respiratory failure secondary to above Former smoker Hematuria, intolerant to cystoscopy in the outpatient setting and was planning for cystoscopy with bilateral grade pyelogram Severe obstructive sleep apnea with an AHI of 100. Maintained on BiPAP 19/14 cm water Morbid obesity with a BMI of 58 kg/m Chronic atrial fibrillation, adequately regulated with Xarelto Hypertension Hyperlipidemia Plan: The patient was seen and evaluated Medications reviewed Continue the current treatment plan We will continue I have personally seen and examined the patient, performed the documentation and the assessment and plan as written. Number of minutes spent on the visit: 10.
--- NOTE | 2023-03-01 13:23 | P.PN ---
Subjective Progress Note Date: 03/01/23 Patient is a 52-year-old male with PMH of COPD on 2 L home O2, atrial fibrillation, hypertension that presents the ED after being brought from the OR where he was scheduled for a cystogram with urology. He reports shortness of breath that is progressively getting worse over the past 2 weeks. His breathing is much more worse today. He reports wheezing. He denies any cough. He denies any chest pain. He denies any headache, lower extremity edema, nausea or vomiting, fever or chills, palpitations, changes in urination or bowel habits. No changes in appetite or weight. He denies any dizziness, numbness/weakness as tingling of extremities. In the ED, he required 3 L nasal cannula to maintain O2 saturation greater than 92%. Vital signs were otherwise stable. CBC was unremarkable. D-dimer was 0.4. Coagulation panel showed a PTT of 30.2. CMP showed sodium 136, glucose of 117. Lactic acid negative. Troponin less than 0.012. BNP 275. Chest x-ray showed atelectasis. EKG showed atrial fibrillation with low voltage QRS, ventricular rate of 77. Patient is admitted for COPD exacerbation. 02/28 Patient was seen and examined. Sleeping comfortably. Still requires 3L NC to maintain O2 saturation > 92%. 03/01 Patient was seen and examined. He reports 70% improvement in his breathing. Still requires 3L NC to maintain O2 saturation > 92%. General: non toxic, no distress, appears at stated age, morbidly obese Derm: warm, dry Head: atraumatic, normocephalic, symmetric Eyes: EOMI, no lid lag, anicteric sclera Mouth: no lip lesion, mucus membranes moist Cardiovascular: Irregularly irregular, no murmur Lungs: Decreased BS bilateral, no rhonchi, no rales , no accessory muscle use Ext: no gross muscle atrophy, no edema, no contractures Neuro: no focal neuro deficits Psych: Alert, oriented, appropriate affect Acute on chronic hypoxic respiratory failure Acute on chronic COPD exacerbation Chronic conditions: Atrial fibrillation, hypertension Based on my assessment of this patient, this patient meets a high complexity level of care. Patient has a COPD with severe exacerbation or progression of disease which poses a threat to life or bodily function. He is at baseline 2 L of oxygen at home. He is currently requiring 3 L to maintain O2 saturation greater than 92%. D-dimer negative, low concerns for PE. Chest x-ray showing atelectasis. Telemetry monitoring will be ordered. Pulmonology on board. Bronchodilators: DuoNeb 0.5mg-3mg/3ml scheduled and as needed for SOB and wheezing. Symbicort 2 puff BID. Antibiotics: Doxycycline 100 mg PO BID. Steroids: SoluMedrol 60 mg IV Q6H. Supplemental oxygen to maintain O2 > 92%. DVT Prophylaxis: Xarelto 20 mg PO QD. FULL CODE. I have reviewed the following [employer] consultant notes: Pulmonology note reviewed from 02/28. I have discussed the management of this patient with the following physician: Case discussed with Dr. Denson, continue same treatment for one more day, anticipate DC home tomorrow. Patient is pending clinical improvement. Pulmonology on board. Needs nebulizer, scripts signed. Objective - Vital Signs Vital signs: Vital Signs Temp 97.6 F 03/01/23 09:05 Pulse 92 03/01/23 12:03 Resp 17 03/01/23 09:05 BP 112/58 03/01/23 09:05 Pulse Ox 96 03/01/23 09:05 FiO2 Intake & Output 02/28/23 03/01/23 03/01/23 18:59 06:59 18:59 Intake Total 500 800 Balance 500 800 Intake: Oral 500 800 Other: Voiding Method Toilet Toilet Toilet - Labs CBC & Chem 7: 02/27/23 13:15 02/27/23 13:15
[2023-03-02] MEDS: IPRATROPIUM-ALBUTEROL 3 ML NEB INHALATION SCH ×4 (00:01→11:07)
[2023-03-02] MEDS: methylPREDNISolone SOD SUCCI 125 MG/2 ML VIAL IV SCH ×2 (00:43→06:15)
[2023-03-02] MEDS: FORMOTEROL FUMARATE 20 MCG/2 ML NEBU INHALATION SCH (07:51)
[2023-03-02] MEDS: BUDESONIDE 1 MG/2 ML NEBU INHALATION SCH (07:51)
[2023-03-02] MEDS: DOXYCYCLINE 100 MG CAP PO SCH (08:57)
[2023-03-02] MEDS: LURASIDONE 80 MG TAB PO SCH (08:57)
[2023-03-02] MEDS: atenoloL 50 MG TAB PO SCH (08:57)
[2023-03-02] MEDS: CITALOPRAM HYDROBROMIDE 10 MG TAB PO SCH (08:57)
[2023-03-02] MEDS: LORATADINE 10 MG TAB PO SCH (08:57)
[2023-03-02] MEDS: ATORVASTATIN 10 MG TAB PO SCH (08:58)
[2023-03-02] MEDS: DILTIAZEM CD 180 MG CAP.ER.24H PO SCH (08:58)
[2023-03-02] MEDS: RIVAROXABAN 20 MG TAB PO SCH (08:58)
[2023-03-02 10:47] VITALS: BP 124/74; RESP 19; TEMP 98.4
[2023-03-02 11:08] VITALS: PULSE 76
--- NOTE | 2023-03-02 11:29 | P.PN ---
Subjective Progress Note Date: 03/02/23 This is a very pleasant 52-year-old male patient who has a history of morbid obesity, chronic atrial fibrillation anticoagulated with Xarelto, urinary retention, obstructive sleep apnea with an AHI of 100 and is maintained on BiPAP in the outpatient setting at 19/14 cm of water, chronic restrictive pulmonary disease with an FEV1 value of 53% of predicted, oxygen dependent on home oxygen at 2 L/m per nasal cannula, former smoker. He had recently been having issues with gross hematuria was following with urology. They attempted a cystoscopy in the office that the patient did not tolerate secondary to pain. He was scheduled for cystoscopy and bilateral retrograde pyelograms here in the OR yesterday but in preop he was felt to be too short of breath and sent to the emergency room. He was subsequently admitted for COPD exacerbation. He is seen today in consultation on the regular medical floor. He is currently sitting up in a chair at the bedside. Awake and alert in no acute distress. He denies feeling any more short of breath than his usual. He is dyspneic with exertion. His x-ray reveals low lung volumes with generalized haziness and possible atelectasis. No acute process. He's been initiated and DuoNeb inhalations, Pulmicort and Perforomist inhalations, IV Solu-Medrol. Continued on his Xarelto. Empiric antibiotics in the form of doxycycline. White count 9.0. Hemoglobin 15.0. Platelets 260. D-dimer 0.24. Sodium 136. Potassium 4.6. Bicarb 20. BUN 14. Creatinine 0.67. Glucose 117. AST 19. ALT 15. Troponin negative times one. ProBNP 275. The patient is seen today 03/01/2023 in follow-up on the regular medical floor. He is currently resting comfortably in bed. Awake and alert in no acute distress. Maintaining O2 saturations in the 90s on 2 L/m per nasal cannula. No IV fluids. Breathing a bit easier today compared to yesterday. Not quite back to his baseline. He is continued on DuoNeb inhalations, Pulmicort and Perforomist inhalations, IV Solu-Medrol. Empiric antibiotics in the form of doxycycline. Anticoagulated with Xarelto. The patient is seen today 03/02/2023 in follow-up on the regular medical floor. He is currently sitting up in a chair at the bedside. Awake and alert in no acute distress. Denies any worsening shortness of breath, cough or congestion. Maintaining O2 saturations in the 90s on 3 L nasal cannula. He remains on DuoNeb inhalations, Pulmicort and Perforomist inhalations, IV Solu-Medrol. Empiric antibiotics in the form of Vibramycin. Anticoagulated with Xarelto. Objective - Vital Signs Vital signs: Vital Signs Temp 98.4 F 03/02/23 07:35 Pulse 76 03/02/23 11:18 Resp 19 03/02/23 08:00 BP 124/74 03/02/23 07:35 Pulse Ox 95 03/02/23 07:52 FiO2 Intake & Output 03/01/23 03/02/23 03/02/23 18:59 06:59 18:59 Intake Total 590 Balance 590 Intake: Oral 590 Other: Voiding Method Toilet Toilet # Voids 5 3 - Exam GENERAL EXAM: Alert, obese 52-year-old male, up in a chair, on 2 L nasal cannula, comfortable in no apparent distress. HEAD: Normocephalic. EYES: Normal reaction of pupils, equal size. NOSE: Clear with pink turbinates. THROAT: No erythema or exudates. NECK: No masses, no JVD. CHEST: No chest wall deformity. LUNGS: Equal air entry with no crackles, wheeze, rhonchi or dullness. Diminished. CVS: S1 and S2 normal with no audible murmur, regular rhythm. ABDOMEN: No hepatosplenomegaly, normal bowel sounds, no guarding or rigidity. SPINE: No scoliosis or deformity SKIN: No rashes CENTRAL NERVOUS SYSTEM: No focal deficits, tone is normal in all 4 extremities. EXTREMITIES: There is no peripheral edema. No clubbing, no cyanosis. Peripheral pulses are intact. - Labs CBC & Chem 7: 02/27/23 13:15 02/27/23 13:15 Assessment and Plan Assessment: Acute exacerbation of severe oxygen dependent chronic obstructive pulmonary disease Chronic hypoxemic respiratory failure secondary to above Former smoker Hematuria, intolerant to cystoscopy in the outpatient setting and was planning for cystoscopy with bilateral grade pyelogram Severe obstructive sleep apnea with an AHI of 100. Maintained on BiPAP 19/14 cm water Morbid obesity with a BMI of 58 kg/m Chronic atrial fibrillation, adequately regulated with Xarelto Hypertension Hyperlipidemia Plan: The patient was seen and evaluated Medications reviewed Cleared for discharge from the pulmonary standpoint Continue his home pulmonary medications, home oxygen Complete prednisone taper starting at 40 mg daily for 4 days Complete a course of antibiotics Follow-up in our office in 1 week Continue the current treatment plan We will continue I have personally seen and examined the patient, performed the documentation and the assessment and plan as written. Number of minutes spent on the visit: 10.
--- NOTE | 2023-03-02 12:30 | P.DS ---
Providers Date of admission: 02/27/23 15:47 Expected date of discharge: 03/02/23 Attending physician: Harlan Nix MD Consults: 02/27/23 17:50 Consult Physician Routine Consulting Provider: Kamlesh Denson Consult Reason/Comments: COPD Do you want consulting provider notified?: Yes Primary care physician: Stated None Hospital Course: Patient is a 52-year-old male with PMH of COPD on 2 L home O2, atrial fibrillation, hypertension that presents the ED after being brought from the OR where he was scheduled for a cystogram with urology. He reports shortness of breath that is progressively getting worse over the past 2 weeks. His breathing is much more worse today. He reports wheezing. He denies any cough. He denies any chest pain. He denies any headache, lower extremity edema, nausea or vomiting, fever or chills, palpitations, changes in urination or bowel habits. No changes in appetite or weight. He denies any dizziness, numbness/weakness as tingling of extremities. In the ED, he required 3 L nasal cannula to maintain O2 saturation greater than 92%. Vital signs were otherwise stable. CBC was unremarkable. D-dimer was 0.4. Coagulation panel showed a PTT of 30.2. CMP showed sodium 136, glucose of 117. Lactic acid negative. Troponin less than 0.012. BNP 275. Chest x-ray showed atelectasis. EKG showed atrial fibrillation with low voltage QRS, ventricular rate of 77. Patient is admitted for COPD exacerbation. 02/28 Patient was seen and examined. Sleeping comfortably. Still requires 3L NC to maintain O2 saturation > 92%. 03/01 Patient was seen and examined. He reports 70% improvement in his breathing. Still requires 3L NC to maintain O2 saturation > 92%. 03/02 Patient was seen and examined. He reports breathing back at baseline. Clear ed by Pulmonology for discharge. Nebulizer at bedside. Telemetry shows tachycardia with HR in the 120s with ambulation. He denies any dizziness, chest pain or shortness of breath. He is advised to follow up with his PCP within 1-2 days of discharge. He is advised to follow up with Pulmonology and Urology within 1 week of discharge. Prescribed neb solution and Prednisone taper on discharge. Cardizem increased to 240 mg PO QD on discharge for tachycardiac with ambulation. Pertinent studies include CXR. General: non toxic, no distress, appears at stated age, morbidly obese Derm: warm, dry Head: atraumatic, normocephalic, symmetric Eyes: EOMI, no lid lag, anicteric sclera Mouth: no lip lesion, mucus membranes moist Cardiovascular: Irregularly irregular, no murmur Lungs: Decreased BS bilateral, no rhonchi, no rales , no accessory muscle use Ext: no gross muscle atrophy, no edema, no contractures Neuro: no focal neuro deficits Psych: Alert, oriented, appropriate affect Discharge Diagnosis: Acute on chronic hypoxic respiratory failure Acute on chronic COPD exacerbation Chronic conditions: Atrial fibrillation, hypertension This complex discharge took 35 minute to complete. Patient Condition at Discharge: Stable Plan - Discharge Summary New Discharge Prescriptions: New Diltiazem Cd [Cardizem CD] 240 mg PO DAILY #30 cap Ipratropium-Albuterol Nebulize [Duoneb 0.5 mg-3 mg/3 ml Soln] 3 ml INHALATION RT-QID PRN #120 each PRN Reason: Shortness Of Breath Or Wheezing predniSONE See Taper PO DIRECTED #30 tab Continue Rosuvastatin Calcium 5 mg PO DAILY Rivaroxaban [Xarelto] 20 mg PO DIRECTED Fluticasone/Umeclidin/Vilanter [Trelegy Ellipta 200-62.5-25] 1 puff IN HALATION RT-DAILY Lurasidone [Latuda] 80 mg PO DAILY atenoloL [Tenormin] 50 mg PO DAILY Clopidogrel [Plavix] 75 mg PO DIRECTED Loratadine [Claritin] 10 mg PO DAILY Albuterol Inhaler [Ventolin Hfa Inhaler] 1 - 2 puff INHALATION RT-Q6H PRN PRN Reason: Shortness Of Breath Citalopram Hydrobromide [Citalopram HBr] 30 mg PO DAILY Discontinued dilTIAZem HCL [Cartia Xt] 180 mg PO DAILY Discharge Medication List Albuterol Inhaler [Ventolin Hfa Inhaler] 1 - 2 puff INHALATION RT-Q6H PRN 02/22/23 [History] Citalopram Hydrobromide [Citalopram HBr] 30 mg PO DAILY 02/22/23 [History] Clopidogrel [Plavix] 75 mg PO DIRECTED 02/22/23 [History] Loratadine [Claritin] 10 mg PO DAILY 02/22/23 [History] Lurasidone [Latuda] 80 mg PO DAILY 02/22/23 [History] Rivaroxaban [Xarelto] 20 mg PO DIRECTED 02/22/23 [History] Rosuvastatin Calcium 5 mg PO DAILY 02/22/23 [History] atenoloL [Tenormin] 50 mg PO DAILY 02/22/23 [History] Fluticasone/Umeclidin/Vilanter [Trelegy Ellipta 200-62.5-25] 1 puff INHALATION RT-DAILY 02/27/23 [History] Diltiazem Cd [Cardizem CD] 240 mg PO DAILY #30 cap 03/02/23 [Rx] Ipratropium-Albuterol Nebulize [Duoneb 0.5 mg-3 mg/3 ml Soln] 3 ml INHALATION RT-QID PRN #120 each 03/02/23 [Rx] predniSONE See Taper PO DIRECTED #30 tab 03/02/23 [Rx] Follow up Appointment(s)/Referral(s): Yandel Fitch MD [STAFF PHYSICIAN] - 03/13/23 1:00 pm None,Stated [Primary Care Provider] - 1-2 days Vilma Anderson MD [STAFF PHYSICIAN] - 03/16/23 8:45 am Patient Instructions/Handouts: How to Stop Smoking (ED) Activity/Diet/Wound Care/Special Instructions: TOMMY Vega-[address] [place] [address] Please stop smoking. Take antibiotics and prednisone as prescribed. 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 Call your urologist to reschedule your appointment for your procedure. Return to the emergency room with any new or concerning symptoms. Discharge Disposition: HOME SELF-CARE
[2023-03-03] MEDS ORDERED: predniSONE 20 MG TAB PO SCH (09:00)
== END 2023-03-02 14:21 | disposition home or self-care (01) | DRG 190 ==
LOC: EC 12:52 → 5NMEDONC 15:47
PROVIDERS: ADMIT Family Medicine; ATTEND Family Medicine
DX: J44.1 Chronic obstructive pulmonary disease with (acute) exacerbation (principal); J96.21 Acute and chronic respiratory failure with hypoxia; Z68.43 Body mass index [BMI] 50.0-59.9, adult; I48.20 Chronic atrial fibrillation, unspecified; E66.01 Morbid (severe) obesity due to excess calories; F41.9 Anxiety disorder, unspecified; I10 Essential (primary) hypertension; E78.5 Hyperlipidemia, unspecified; R31.0 Gross hematuria; G47.33 Obstructive sleep apnea (adult) (pediatric); Z87.891 Personal history of nicotine dependence; Z99.81 Dependence on supplemental oxygen; F17.210 Nicotine dependence, cigarettes, uncomplicated; Z79.01 Long term (current) use of anticoagulants; Z79.51 Long term (current) use of inhaled steroids; Z79.899 Other long term (current) drug therapy; Z91.041 Radiographic dye allergy status; Z88.6 Allergy status to analgesic agent
CPT/HCPCS: 36415; 71046; 80053; 83605; 83735; 83880; 84484; 85025; 85379; 85610; 85730; 93005; 94640; 94760

== ENCOUNTER → 2023-02-27 | Day surgery (SDC) | payer MEDICARE, OTHER ==
[2023-02-22 10:53] VITALS: BMI 55.5
[~2023-02-27] MED LIST: CIPROFLOXACIN/DEXTROSE PMX 400 MG in DEXTROSE/WATER 1 200ML.BAG IVPB PRN; DEXAMETHASONE SOD PHOSPHATE 4 MG/ML 1 ML VIAL IV ONE; HYDROmorphone 0.5 MG/0.5 ML SYRINGE IVP PRN; LACTATED RINGERS 1,000 ML IV SCH; LIDOCAINE 1% (10MG/ML) FOR IV START INTRADERMA PRN; MIDAZOLAM 2 MG/2 ML VIAL IV PRN; ONDANSETRON 4 MG/2 ML VIAL IVP ONE
--- NOTE | 2023-02-27 08:35 | P.HPIHPCON ---
History of Present Illness H&P Date: 02/27/23 Chief Complaint: Gross hematuria This is a 52-year-old male with history of gross hematuria. Underwent a CT urogram that showed no acute process, but of note on delayed images there was poor visualization of the renal calyces. He underwent attempted office cystoscopy but did not tolerate secondary to pain. Discussed with him the option of doing a cystoscopy in the OR. Discussed with him we will also do a bilateral retrograde pyelogram to evaluate upper tract given the limited evaluation on CT urogram. Risk of bleeding infection injury to the ureter was discussed. Discussed with him If I find a bladder tumor then will proceed with resection at the same time. He understood all the risk and agreed to proceed Consent for Procedure: I have explained the operation/procedure to the patient, including the risks, benefits, side effects, alternative therapies (including not receiving the proposed treatment or service), the likelihood of the patient achieving his/her goals, and potential recuperation problems for the procedure/sedation/analgesia, as well as any blood products, if indicated. I also explained to the patient the risks, benefits and side effects of the alternatives, as well as the risks related to not receiving the proposed procedure, care, treatment, or services. Past Medical History Past Medical History: Atrial Fibrillation, Asthma, Hyperlipidemia, Hypertension, Sleep Apnea/CPAP/BIPAP Additional Past Medical History / Comment(s): USES C-PAP. BLOOD IN URINE. USES O2 2L/NC NEEDED History of Any Multi-Drug Resistant Organisms: None Reported Past Surgical History: No Surgical Hx Reported Additional Past Surgical History / Comment(s): EYELID SURGERY Past Anesthesia/Blood Transfusion Reactions: No Reported Reaction Smoking Status: Current every day smoker - Past Family History Mother Family Medical History: Cancer Father Family Medical History: Cancer Medications and Allergies Home Medications Medication Instructions Recorded Confirmed Type Albuterol Inhaler [Ventolin Hfa 1 - 2 puff INHALATION Q6H PRN 02/22/23 02/22/23 History Inhaler] Albuterol Nebulized (Conc) 2.5 mg INHALATION Q6H PRN 02/22/23 02/22/23 History [Ventolin Nebulized (Conc)] Citalopram Hydrobromide 30 mg PO DAILY 02/22/23 02/22/23 History [Citalopram HBr] Clopidogrel [Plavix] 75 mg PO DAILY 02/22/23 02/22/23 History Fluticasone/Umeclidin/Vilanter 1 inhalation INHALATION HS 02/22/23 02/22/23 History [Braden Ellipta 100-62.5-25] Loratadine [Claritin] 10 mg PO DAILY 02/22/23 02/22/23 History Lurasidone [Latuda] 80 mg PO DAILY 02/22/23 02/22/23 History Rivaroxaban [Xarelto] 20 mg PO DAILY 02/22/23 02/22/23 History Rosuvastatin Calcium 5 mg PO DAILY 02/22/23 02/22/23 History atenoloL [Tenormin] 50 mg PO DAILY 02/22/23 02/22/23 History dilTIAZem HCL [Cartia Xt] 180 mg PO DAILY 02/22/23 02/22/23 History hydrOXYzine HCL [Atarax] 50 mg PO TID PRN 02/22/23 02/22/23 History Allergies Allergy/AdvReac Type Severity Reaction Status Date / Time aspirin Allergy Swelling Verified 02/22/23 10:37 cefaclor [From [facility]] Allergy Rash/Hives Verified 02/22/23 10:37 Iodinated Contrast Media Allergy Chest Pain Verified 02/22/23 10:37 Surgical - Exam - General no distress, no pain - Eyes normal ocular movement, no pale - ENT normal nares, normal mucosa - Respiratory normal expansion, normal respiratory effort - Abdomen Abdomen: soft, non tender Assessment and Plan Assessment: OR for cystoscopy and bilateral retrograde pyelograms
[2023-02-27 12:36] VITALS: BP 123/61; PULSE 79; RESP 16
== END ==
LOC: OR 11:47
PROVIDERS: ATTEND Urology
DX: Z53.8 Procedure and treatment not carried out for other reasons (principal); R31.0 Gross hematuria; I48.91 Unspecified atrial fibrillation; J45.909 Unspecified asthma, uncomplicated; I10 Essential (primary) hypertension; E78.5 Hyperlipidemia, unspecified; G47.30 Sleep apnea, unspecified; F17.200 Nicotine dependence, unspecified, uncomplicated; Z79.51 Long term (current) use of inhaled steroids; Z88.6 Allergy status to analgesic agent; Z79.899 Other long term (current) drug therapy

== ENCOUNTER 2023-07-17 09:01 | Day surgery (SDC) | payer MEDICARE, OTHER ==
--- NOTE | 2023-07-17 09:28 | P.HPIHPCON ---
History of Present Illness H&P Date: 07/17/23 Chief Complaint: Gross hematuria This is a 53-year-old male with history of gross hematuria, underwent a CT urogram that showed no upper tract pathology, but of note it was poor quality image. He was unable to tolerate an office cystoscopy. Option of doing a cystoscopy with bilateral retrograde pyelogram in the OR was discussed with him. Discussed if abnormality is seen on cystoscopy or retrograde stent then we'll proceed with biopsies. Risk and benefit was discussed with detail. He understood all the risk and agree to proceed with a cystoscopy with bilateral retrograde pyelogram Consent for Procedure: I have explained the operation/procedure to the patient, including the risks, benefits, side effects, alternative therapies (including not receiving the proposed treatment or service), the likelihood of the patient achieving his/her goals, and potential recuperation problems for the procedure/sedation/analgesia, as well as any blood products, if indicated. I also explained to the patient the risks, benefits and side effects of the alternatives, as well as the risks related to not receiving the proposed procedure, care, treatment, or services. Past Medical History Past Medical History: Atrial Fibrillation, Asthma, COPD, GERD/Reflux, Hyperlipidemia, Hypertension, Sleep Apnea/CPAP/BIPAP Additional Past Medical History / Comment(s): Home oxygen 2L/NC during daytime, cpap at night, obesity History of Any Multi-Drug Resistant Organisms: None Reported Past Surgical History: No Surgical Hx Reported Additional Past Surgical History / Comment(s): eye surgery and cystogram. Past Anesthesia/Blood Transfusion Reactions: No Reported Reaction Smoking Status: Current every day smoker - Past Family History Father Family Medical History: Cancer Additional Family Medical History / Comment(s): . Mother Family Medical History: Cancer Additional Family Medical History / Comment(s): . Medications and Allergies Home Medications Medication Instructions Recorded Confirmed Type Albuterol Inhaler [Ventolin Hfa 1 - 2 puff INHALATION RT-Q6H PRN 02/22/23 07/12/23 History Inhaler] Citalopram Hydrobromide 30 mg PO QAM 02/22/23 07/12/23 History [Citalopram HBr] Clopidogrel [Plavix] 75 mg PO QAM 02/22/23 07/12/23 History Loratadine [Claritin] 10 mg PO QAM 02/22/23 07/12/23 History Lurasidone [Latuda] 60 mg PO HS 02/22/23 07/12/23 History Rivaroxaban [Xarelto] 20 mg PO HS 02/22/23 07/12/23 History Rosuvastatin Calcium 5 mg PO QAM 02/22/23 07/12/23 History atenoloL [Tenormin] 50 mg PO QAM 02/22/23 07/12/23 History Ipratropium-Albuterol Nebulize 3 ml INHALATION RT-QID PRN #120 03/02/23 07/12/23 Rx [Duoneb 0.5 mg-3 mg/3 ml Soln] each Diltiazem Cd [Cardizem CD] 180 mg PO QA 07/12/23 07/12/23 History Allergies Allergy/AdvReac Type Severity Reaction Status Date / Time aspirin Allergy Swelling Verified 07/12/23 10:50 cefaclor [From Ceclor] Allergy Rash/Hives Verified 07/12/23 10:50 Iodinated Contrast Media Allergy Chest Pain Verified 07/12/23 10:50 Surgical - Exam - General no distress, no pain - Eyes normal ocular movement, no pale - ENT normal nares, normal mucosa - Respiratory normal expansion, normal respiratory effort - Abdomen Abdomen: soft, non tender - Psychiatric oriented to time, oriented to person, oriented to place Assessment and Plan Assessment: OR for cystoscopy, with bilateral retrograde pyelogram
[2023-07-17] MEDS ORDERED: ePHEDrine 50 MG/ML 1 ML VIAL ONE (11:35)
[2023-07-17] MEDS ORDERED: PROPOFOL 10 MG/ML 20 ML VIAL IV ONE (11:35)
[2023-07-17] MEDS ORDERED: ROCURONIUM 10 MG/ML (5 ML VIAL) IV ONE (11:35)
[2023-07-17] MEDS ORDERED: ALBUTEROL HFA INHALER INHALATION ONE (11:35)
[2023-07-17] MEDS ORDERED: SUCCINYLCHOLINE CHLORIDE 200 MG/10 ML VIAL IV ONE (11:35)
[2023-07-17] MEDS ORDERED: NEOSTIGMINE 1 MG/ML 10 ML VIAL ONE (11:35)
[2023-07-17] MEDS ORDERED: PHENYLEPHRINE-0.9% NACL SYG 1,000 MCG/10 ML SYRINGE ONE (11:35)
[2023-07-17] MEDS ORDERED: SUGAMMADEX SODIUM 200 MG/2 ML SDV IV ONE (11:35)
[2023-07-17] MEDS ORDERED: fentaNYL (PF) 50 MCG/ML 2 ML AMP ONE (11:35)
[2023-07-17] MEDS ORDERED: GLYCOPYRROLATE 0.2 MG/ML 2 ML VIAL ONE (11:35)
[2023-07-17] MEDS ORDERED: IOPAMIDOL-370 50ML BTL MISCELLANE ONE (12:10)
--- NOTE | 2023-07-17 12:25 | FL ---
Intraoperative/procedural fluoroscopic services were provided. Total fluoroscopy time is 40 seconds w ith a total of 3 submitted images to PACS. Please see the operative/procedural note for further detai ls. DAP: 1.24 Gym2
[2023-07-17 13:07] VITALS: TEMP 99.6
[2023-07-17] MEDS ORDERED: SODIUM CHLORIDE 0.9% NEBULIZ 3 ML INHALATION ONE (14:43)
[2023-07-17] MEDS ORDERED: ALBUTEROL NEBULIZED 2.5 MG/3 ML INHALATION ONE ×2 (14:43→14:49)
[2023-07-17 16:14] VITALS: BP 117/56; PULSE 87; RESP 19
--- NOTE | 2023-07-17 16:48 | P.OP ---
Date of Procedure: 07/24/23 Preoperative Diagnosis: Gross hematuria Postoperative Diagnosis: Same Procedure(s) Performed: Cystoscopy and bilateral retrograde pyelogram, urethral dilation Implants: None Anesthesia: ARGENISA Surgeon: Yandel Fitch Estimated Blood Loss (ml): 10 Pathology: none sent Condition: stable Disposition: PACU Indications for Procedure: This is a 53-year-old male with history of gross hematuria, underwent a CT urogram that showed no upper tract pathology, but of note it was poor quality image. He was unable to tolerate an office cystoscopy. Option of doing a cystoscopy with bilateral retrograde pyelogram in the OR was discussed with him. Discussed if abnormality is seen on cystoscopy or retrograde stent then we'll proceed with biopsies. Risk and benefit was discussed with detail. He understood all the risk and agree to proceed with a cystoscopy with bilateral retrograde pyelogram Operative Findings: Normal cystoscopy and bilateral retrograde Polygram, patient did have a hypervascular moderately enlarged prostate Description of Procedure: Patient brought to the operating room, general anesthesia was induced. He was prepped and draped in sterile fashion and placement dorsal lithotomy position. Patient had meatal stenosis and this was dilated using the [place] sounds to 26-[place]. This time the cystoscope was inserted per urethra and advanced up into the bladder, complete cystoscopy was performed showed no abnormality within the bladder. 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 This time attention was carried to the retrograde pyelogram, the right ureteral orifice was intubated with an open-ended catheter, retrograde pyelogram was performed on that side which showed no filling defect or hydronephrosis. Attention was then carried to the left side and a using the 6- [place] open-ended catheter retrograde pyelogram was performed on that side which showed no filling defect or hydronephrosis. At this time the cystoscope was withdrawn after emptying the bladder. Patient tolerated procedure was taken to recovery in stable condition. Unknown etiology of gross hematuria was identified, patient did have a hypervascular mildly enlarged prostate and this could be the source of his gross hematuria he will be started on Proscar
== END 2023-07-17 16:07 | disposition home or self-care (01) ==
LOC: OR 09:01
PROVIDERS: ATTEND Urology
DX: N35.912 Unspecified bulbous urethral stricture, male (principal); J44.9 Chronic obstructive pulmonary disease, unspecified; I48.91 Unspecified atrial fibrillation; K21.9 Gastro-esophageal reflux disease without esophagitis; I10 Essential (primary) hypertension; E78.5 Hyperlipidemia, unspecified; G47.33 Obstructive sleep apnea (adult) (pediatric); F17.200 Nicotine dependence, unspecified, uncomplicated; Z79.51 Long term (current) use of inhaled steroids; Z88.6 Allergy status to analgesic agent; Z79.899 Other long term (current) drug therapy
CPT/HCPCS: 74420; 52281; J0330; J1100; J2710; J2405; J3010; J0744; J2704; Q9967; J2371